=== PATIENT | male | born 1995 | race Caucasian/White ===

== ENCOUNTER 2016-07-09 10:47 | Emergency (ER) | payer OTHER ==
[2016-07-09] MEDS ORDERED: ONDANSETRON 4MG/2ML VIAL (J2405) As Ordered ONE (11:37)
[2016-07-09] MEDS ORDERED: PANTOPRAZOLE 40MG INJ (PROTONIX) (C9113) As Ordered ONE (11:37)
[2016-07-09 11:56] LABS: BASO % 0.5 % (0.0-1.0); EOS # 0.3 K/mm3 (0.0-0.50); EOS % 3.5 % (0.0-3.0); LARGE UNSTAINED CELL # 0.1 K/mm3 (0.0-0.4); LARGE UNSTAINED CELL % 1.3 % (0.0-4.0); LYMPH # 2.4 K/mm3 (1.5-6.5); LYMPH % 27.2 % (24.0-44.0); MEAN CORPUSCULAR HEMOGLOBIN 30.5 pg (27.0-33.0); MEAN CORPUSCULAR HGB CONC 33.1 g/dl (32.0-36.5); MEAN CORPUSCULAR VOLUME 92.3 fl (80.0-96.0); MONO # 0.4 K/mm3 (0.0-0.8); NEUTROPHILS # 5.2 K/mm3 (1.8-7.7); NEUTROPHILS % 62.5 % (36.0-66.0); PLATELET COUNT, AUTOMATED 275 k/mm3 (150-450); WHITE BLOOD COUNT 8.3 K/mm3 (4.0-10.0)
[2016-07-09] MEDS ORDERED: GI COCKTAIL 50ML BTL(HYOSCYAMINE/MAALOX/LIDOCAINE VISCOUS)(1:3:1) As Ordered ONE (12:19)
[2016-07-09 12:28] LABS: ALBUMIN 4.2 GM/DL (3.2-5.2); ALBUMIN/GLOBULIN RATIO 1.11 (1.00-1.93); ALKALINE PHOSPHATASE 57 U/L (45-117); ALT/SGPT 36 U/L (12-78); AMYLASE 74 U/L (25-115); ANION GAP 6 MEQ/L (8-16); AST/SGOT 22 U/L (15-37); BILIRUBIN,DIRECT < 0.1 MG/DL (0.0-0.2); BILIRUBIN,TOTAL 0.5 MG/DL (0.2-1.0); BLOOD UREA NITROGEN 11 MG/DL (7-18); CALCIUM LEVEL 9.2 MG/DL (8.5-10.1); CARBON DIOXIDE LEVEL 31 MEQ/L (21-32); CHLORIDE LEVEL 103 MEQ/L (98-107); CREATININE FOR GFR 0.95 MG/DL (0.70-1.30); GLOMERULAR FILTRATION RATE > 60.0 (>60); GLUCOSE, FASTING 83 MG/DL (70-105); POTASSIUM SERUM 3.9 MEQ/L (3.5-5.1); SODIUM LEVEL 140 MEQ/L (136-145)
--- NOTE | 2016-07-09 13:27 | EDDOCDS ---
Nurse's Notes [facility] Name: Edawrd Aldrich Age: 21 yrs Sex: Male : 1995 Arrival Date: 07/09/2016 Time: 10:47 Bed I5 / M5 Private MD: Alan Colón M Diagnosis: Gastritis, unspecified Presentation: 07/09 10:55 Presenting complaint: Patient states: upper abd pain and diarrhea since sun am. srm improves while eating or when takes tums but then returns. vomtited x2 on sun but none since. when he burps it tatses acidic. Risk factors: the patient reports not having a history of previous torsion. Adult Sepsis Screening: The patient does not have new or worsening altered mentation. Patient's respiratory rate is less than 22. Systolic blood pressure is greater than 100. Patient has a qSOFA score of 0- Negative Sepsis Screen. Suicide/Homicide risk assessment- the patient denies having any suicidal and/or homicidal ideations and does not present with any other emotional, behavioral or mental health complaints. 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 Transition of care: patient was not received from another setting of care. 10:55 Acuity: MIKAELA Level 3 srm 10:55 Method Of Arrival: Walkin/Carried/Asstd srm Triage Assessment: 10:57 General: Appears in no apparent distress, Behavior is appropriate for age, cooperative. srm Pain: Pain currently is 4 out of 10 on a pain scale. At worst was 10 out of 10 on a pain scale. HIV screening NA for this visit Offered previously. GI: Reports upper abd pain. Historical: - Allergies: no known allergies; - Home Meds: 1. none - PMHx: none; - PSHx: wisdom teeth; - Social history: Smoking status: Patient states was never smoker of tobacco. No barriers to communication noted, The patient speaks fluent Tajik, Speaks appropriately for age. - Family history: Not pertinent. - : The pt / caregiver states he / she is not on anticoagulants. Home medication list is obtained from the patient. - Exposure Risk Screening:: None identified. Screenin:43 Screening information is obtained from the patient. Fall risk: No risks identified. kp Assistance ADL's: requires no assistance with activities of daily living. Abuse/DV Screen: The patient / caregiver reports he/she is: not in a situation that causes fear, pain or injury. Nutritional screening: No deficits noted. Advance Directives: Currently, there is no health care proxy. There is no active DNR order. There is no living will. There is no Power of Drum Puller. Advance directive information has not previously been placed in an [facility] medical record. Further advance directive information is declined. home support is adequate. Assessment: 11:43 General: Appears in no apparent distress, well nourished, well groomed, Behavior is kpj appropriate for age, pleasant. Pain: Location: epigastric area Pain currently is 4 out of 10 on a pain scale. Neurological: Level of Consciousness is awake, alert, Oriented to person, place, time. Respiratory: Airway is patent Respiratory effort is even, unlabored, Respiratory pattern is regular, symmetrical, Breath sounds are clear bilaterally. GI: Abdomen is non- distended Bowel sounds present X 4 quads. Abd is soft X 4 quads Abd is tender to palpation in epigastric area Reports epigastric pain, nausea, Pain is 4 out of 10 on a pain scale. Derm: Skin is pink, warm & dry. 12:22 General: Appears in no apparent distress, Behavior is appropriate for age. Pain: kpj Location: epigastric area Pain currently is 7 out of 10 on a pain scale. Quality of pain is described as burning. Respiratory: Airway is patent Respiratory effort is even, unlabored. GI: Reports epigastric pain, Pain is 7 out of 10 on a pain scale. Derm: Skin is pink, warm & dry. 13:22 General: Appears in no apparent distress, comfortable, Behavior is appropriate for age, kpj pleasant. Pain: Denies pain. Neurological: Level of Consciousness is awake, alert, Oriented to person, place, time. Respiratory: Airway is patent Respiratory effort is even, unlabored. GI: Abdomen is non- distended Bowel sounds present X 4 quads. Abd is soft and non tender X 4 quads. Derm: Skin is pink, warm & dry. Vital Signs: 10:48 BP 158 / 59; Pulse 61; Resp 18; Temp 98.3(O); Pulse Ox 100% on R/A; Weight 84.82 kg ct3 (R); Height 5 ft. 7 in. (170.18 cm) (R); Pain 4/10; 12:18 BP 126 / 63; Pulse 55; Resp 20; Temp 97.2; Pulse Ox 98% ; Pain 7/10; jam1 13:14 BP 147 / 73; Pulse 65; Resp 18; Temp 96.6; Pulse Ox 97% ; Pain 2/10; jam1 10:48 Body Mass Index 29.29 (84.82 kg, 170.18 cm) ct3 Vitals: 10:48 Log In Time: July 09, 2016 at 10:46. ct3 ED Course: 10:48 Patient visited by Rosamaria Andrade PCA. ct3 10:48 Alan Colón is Private Physician. ct3 10:48 Patient moved to Waiting ct3 10:49 Patient moved to Pre RCE ct3 10:57 Triage Initiated srm 10:58 Patient moved to Triage 1 srm 11:18 Gagan Narvaez PA-C is PHCP. ar2 11:18 Kyrie Cisneros MD is Attending Physician. ar2 11:18 Patient visited by Gagan Narvaez PA-C. ar2 11:26 Patient moved to I5 / M5 [facility] 11:42 Amylase Sent. kpj 11:43 Resting quietly. kpj 11:43 The patient / caregiver is instructed regarding the plan of care and ED course. Patient taj has correct armband on for positive identification. Placed in gown. Placed in psych safe attire. Call light in reach. Diet: Patient is NPO. 11:43 Basic Metabolic Profile Sent. kpj 11:43 CBC with Diff Sent. kpj 11:43 Lipase Sent. kpj 11:43 Liver Profile Sent. kpj 11:43 Inserted saline lock: 20 gauge in left antecubital area and blood collected. [facility] patient tolerated the procedure well. 12:13 Patient visited by Natalya Garcai PCA. jam1 12:14 Pt greeted and oriented to ED. Patient advised of names of staff involved in care, jam1 location of call nagel, wait times and NPO status. Patient has correct armband on for positive identification. Placed in gown. Bed in low position. Call light in reach. Side rails up X 1. Door closed. 12:22 Resting quietly. using his cell phone, requesting to eat, advised NPO. kpj 12:22 IV is patent, is intact, is free of redness or swelling. kpj 12:53 Patient name changed from Edward\S\\S\Brown\S\ to Edward\S\Ray\S\Brown. EDMS 12:53 [facility] Payment Agreement was scanned into [employer] and attached to record. lg 13:10 Alan Colón is Referral Physician. ar2 13:22 Discontinued lock intact, bleeding controlled, pressure dressing applied, No kpj redness/swelling at site. No procedures done that require assistance. Administered Medications: 11:43 Drug: pantoprazole 40 mg [pantoprazole 40 mg intravenous solution] Route: IV; Rate: mcp bolus; Site: left antecubital; 12:15 Follow up: Response: Pain is decreased kpj 11:43 Drug: Ondansetron 4 mg [ondansetron HCl 2 mg/mL intravenous solution (2 mL)] Route: mcp IVP; Site: left antecubital; 12:15 Follow up: Response: Nausea is resolved kpj 12:21 Drug: GI Cocktail - (Alum-Mag Hydroxide-Simeth Suspension 225 mg-200 mg-25 mg/5 mL 30 kpj ml, Lidocaine Liquid 2 % 10 ml, Hyoscyamine Liquid 10 ml) Route: PO; Order Results: Lab Order: Amylase; SPEC'M 07/09/16 11:40 Test: AMYLASE; Value: 74; Range: 25-115; Units: U/L; Status: F Lab Order: Basic Metabolic Profile; SPEC'M 07/09/16 11:40 Test: GLUCOSE, FASTING; Value: 83; Range: 70-105; Units: MG/DL; Status: F Test: BLOOD UREA NITROGEN; Value: 11; Range: 7-18; Units: MG/DL; Status: F Test: CREATININE FOR GFR; Value: 0.95; Range: 0.70-1.30; Units: MG/DL; Status: F Test: GLOMERULAR FILTRATION RATE; Value: > 60.0; Range: >60; Status: F Test: SODIUM LEVEL; Value: 140; Range: 136-145; Units: MEQ/L; Status: F Test: POTASSIUM SERUM; Value: 3.9; Range: 3.5-5.1; Units: MEQ/L; Status: F Test: CHLORIDE LEVEL; Value: 103; Range: 98-107; Units: MEQ/L; Status: F Test: CARBON DIOXIDE LEVEL; Value: 31; Range: 21-32; Units: MEQ/L; Status: F Test: ANION GAP; Value: 6; Range: 8-16; Abnormal: Below low normal; Units: MEQ/L; Status: F Test: CALCIUM LEVEL; Value: 9.2; Range: 8.5-10.1; Units: MG/DL; Status: F Test Note: ; Units are mL/min/1.73 m2 Chronic Kidney Disease Staging per NKF: Stage I & II GFR >=60 Normal to Mildly Decreased Stage III GFR 30-59 Moderately Decreased Stage IV GFR 15-29 Severely Decreased Stage V GFR <15 Very Little GFR Left ESRD GFR <15 on MANUFACTURING ENGINEER PAINT Lab Order: CBC with Diff; SPEC'M 07/09/16 11:40 Test: WHITE BLOOD COUNT; Value: 8.3; Range: 4.0-10.0; Units: K/mm3; Status: F Test: RED BLOOD COUNT; Value: 5.53; Range: 4.30-6.10; Units: M/mm3; Status: F Test: HEMOGLOBIN; Value: 16.9; Range: 14.0-18.0; Units: g/dl; Status: F Test: HEMATOCRIT; Value: 51.0; Range: 42.0-52.0; Units: %; Status: F Test: MEAN CORPUSCULAR VOLUME; Value: 92.3; Range: 80.0-96.0; Units: fl; Status: F Test: MEAN CORPUSCULAR HEMOGLOBIN; Value: 30.5; Range: 27.0-33.0; Units: pg; Status: F Test: MEAN CORPUSCULAR HGB CONC; Value: 33.1; Range: 32.0-36.5; Units: g/dl; Status: F Test: RED CELL DISTRIBUTION WIDTH; Value: 12.0; Range: 11.5-14.5; Units: %; Status: F Test: PLATELET COUNT, AUTOMATED; Value: 275; Range: 150-450; Units: k/mm3; Status: F Test: NEUTROPHILS %; Value: 62.5; Range: 36.0-66.0; Units: %; Status: F Test: LYMPH %; Value: 27.2; Range: 24.0-44.0; Units: %; Status: F Test: MONO %; Value: 5.0; Range: 0.0-5.0; Units: %; Status: F Test: EOS %; Value: 3.5; Range: 0.0-3.0; Abnormal: Above high normal; Units: %; Status: F Test: BASO %; Value: 0.5; Range: 0.0-1.0; Units: %; Status: F Test: LARGE UNSTAINED CELL %; Value: 1.3; Range: 0.0-4.0; Units: %; Status: F Test: NEUTROPHILS #; Value: 5.2; Range: 1.8-7.7; Units: K/mm3; Status: F Test: LYMPH #; Value: 2.4; Range: 1.5-6.5; Units: K/mm3; Status: F Test: MONO #; Value: 0.4; Range: 0.0-0.8; Units: K/mm3; Status: F Test: EOS #; Value: 0.3; Range: 0.0-0.50; Units: K/mm3; Status: F Test: BASO #; Value: 0.0; Range: 0.0-0.2; Units: K/mm3; Status: F Test: LARGE UNSTAINED CELL #; Value: 0.1; Range: 0.0-0.4; Units: K/mm3; Status: F Lab Order: Lipase; [facility] 07/09/16 11:40 Test: LIPASE; Value: 116; Range: 73-393; Units: U/L; Status: F Lab Order: Liver Profile; [facility] 07/09/16 11:40 Test: AST/SGOT; Value: 22; Range: 15-37; Units: U/L; Status: F Test: ALT/SGPT; Value: 36; Range: 12-78; Units: U/L; Status: F Test: ALKALINE PHOSPHATASE; Value: 57; Range: 45-117; Units: U/L; Status: F Test: BILIRUBIN,TOTAL; Value: 0.5; Range: 0.2-1.0; Units: MG/DL; Status: F Test: BILIRUBIN,DIRECT; Value: < 0.1; Range: 0.0-0.2; Units: MG/DL; Status: F Test: TOTAL PROTEIN; Value: 8.0; Range: 6.4-8.2; Units: GM/DL; Status: F Test: ALBUMIN; Value: 4.2; Range: 3.2-5.2; Units: GM/DL; Status: F Test: ALBUMIN/GLOBULIN RATIO; Value: 1.11; Range: 1.00-1.93; Status: F Outcome: 13:11 Discharge ordered by Provider. ar 13:22 Discharge Assessment: Patient awake, alert and oriented x 3. No cognitive and/or kpj functional deficits noted. Patient verbalized understanding of disposition instructions. patient administered narcotics - no. The following High Risk Discharge criteria are identified: None. Discharged to home ambulatory. Condition: stable. Discharge instructions given to patient, Instructed on discharge instructions, follow up and referral plans. medication usage, diet, Demonstrated understanding of instructions, medications, Pt was receptive of discharge instructions/ teaching. Prescriptions given X 2. 13:25 No special radiology studies were completed. Property sent home with patient. [facility] 13:26 Patient left the ED. [facility] Signatures: Dispatcher [employer] EDRoxanna Macdonald RN RN Aniyah Gutiérrez, RN RN Ayaka Ward, RN Natalya Silva mcp, LINEN ROOM SUPERVISOR LINEN ROOM SUPERVISOR jam1 Niall Flores, Emile Reg Gagan Stanley PA-C PA-C ar2 Rosamaria Andrade, LINEN ROOM SUPERVISOR LINEN ROOM SUPERVISOR ct3 Natalya Knapp,RN RN [facility] MTDD
--- NOTE | 2016-07-09 13:27 | EDDOCDS ---
Physician Documentation [facility] Name: Edward Aldrich Age: 21 yrs Sex: Male : 1995 Arrival Date: 07/09/2016 Time: 10:47 Bed I5 / M5 Private MD: Alan Colón M Disposition: 07/09/16 13:11 Discharged to Home/Self Care. Impression: Gastritis, unspecified. - Condition is Stable. - Discharge Instructions: Gastritis, Adult, Peptic Ulcer Disease. - Prescriptions for Carafate 1 gram Oral Tablet - take 1 tablet by ORAL route 4 times per day take on an empty stomach, beginning on waking and last dose at bedtime; 20 tablet. Prilosec 20 mg Oral Capsule, Delayed Release(E.C.) - take 1 capsule by ORAL route once daily; 30 capsule. - Medication Reconciliation, Local Pharmacy Hours form. - Follow up: Alan Colón; When: 1 week; Reason: Recheck today's complaints. Follow up: Emergency Department; When: As needed; Reason: Fever > 102F, Worsening of conditions. - Problem is new. - Symptoms are resolved. Historical: - Allergies: no known allergies; - Home Meds: 1. none - PMHx: none; - PSHx: wisdom teeth; - Social history: Smoking status: Patient states was never smoker of tobacco. No barriers to communication noted, The patient speaks fluent Slovenian, Speaks appropriately for age. - Family history: Not pertinent. - : The pt / caregiver states he / she is not on anticoagulants. Home medication list is obtained from the patient. - Exposure Risk Screening:: None identified. Vital Signs: 07/09 10:48 BP 158 / 59; Pulse 61; Resp 18; Temp 98.3(O); Pulse Ox 100% on R/A; Weight 84.82 kg / ct3 187 lbs (R); Height 5 ft. 7 in. (170.18 cm) (R); Pain 4/10; 12:18 BP 126 / 63; Pulse 55; Resp 20; Temp 97.2; Pulse Ox 98% ; Pain 7/10; jam1 13:14 BP 147 / 73; Pulse 65; Resp 18; Temp 96.6; Pulse Ox 97% ; Pain 2/10; jam1 10:48 Body Mass Index 29.29 (84.82 kg, 170.18 cm) ct3 MDM: 11:27 IV Saline Lock ordered. ar2 11:27 Undress patient appropriately for examination ordered. ar2 11:27 pantoprazole 40 mg IV at bolus once ordered. ar2 11:27 Ondansetron 4 mg IVP once ordered. ar2 11:27 Misc. Nursing Order ordered. ar2 11:28 Amylase Ordered. EDMS 11:28 Basic Metabolic Profile Ordered. EDMS 11:28 CBC with Diff Ordered. EDMS 11:28 Lipase Ordered. EDMS 11:28 Liver Profile Ordered. EDMS 11:28 NOTHING BY MOUTH+DIET ordered. EDMS 11:50 Financial registration complete. lg 12:02 CBC with Diff Reviewed. ar2 12:09 GI Cocktail - (Alum-Mag Hydroxide-Simeth 30 ml, Lidocaine 10 ml, Hyoscyamine 10 ml) PO ar2 once; Pre-mixed 50mL unit dose ordered. 12:47 Basic Metabolic Profile Reviewed. ar2 12:47 Amylase Reviewed. ar2 12:47 Lipase Reviewed. ar2 12:47 Liver Profile Reviewed. ar2 12:53 [facility] Payment Agreement was scanned into [employer] and attached to record. lg Administered Medications: 11:43 Drug: pantoprazole 40 mg [pantoprazole 40 mg intravenous solution] Route: IV; Rate: mcp bolus; Site: left antecubital; 12:15 Follow up: Response: Pain is decreased kpj 11:43 Drug: Ondansetron 4 mg [ondansetron HCl 2 mg/mL intravenous solution (2 mL)] Route: mcp IVP; Site: left antecubital; 12:15 Follow up: Response: Nausea is resolved kpj 12:21 Drug: GI Cocktail - (Alum-Mag Hydroxide-Simeth Suspension 225 mg-200 mg-25 mg/5 mL 30 kpj ml, Lidocaine Liquid 2 % 10 ml, Hyoscyamine Liquid 10 ml) Route: PO; Signatures: Dispatcher [employer] Roxanna Ford RN RN kpj Michelson, Staci, RN RN srm Ganter, LoriLee, Emile Reg lg Gagan Narvaez PA-C PATone ar2 Ayaka Nance RN [facility] The chart was reviewed and I authenticate all verbal orders and agree with the evaluation and treatment provided.Attachments: 12:53 [facility] Payment Agreement lg MTDD
--- NOTE | 2016-07-11 14:26 | EDDOCDS ---
Physician Documentation [facility] Name: Edward Aldrich Age: 21 yrs Sex: Male : 1995 Arrival Date: 07/09/2016 Time: 10:47 Bed I5 / M5 Private MD: Alan Colón M Disposition: 07/09/16 13:11 Discharged to Home/Self Care. Impression: Gastritis, unspecified. - Condition is Stable. - Discharge Instructions: Gastritis, Adult, Peptic Ulcer Disease. - Prescriptions for Carafate 1 gram Oral Tablet - take 1 tablet by ORAL route 4 times per day take on an empty stomach, beginning on waking and last dose at bedtime; 20 tablet. Prilosec 20 mg Oral Capsule, Delayed Release(E.C.) - take 1 capsule by ORAL route once daily; 30 capsule. - Medication Reconciliation, Local Pharmacy Hours form. - Follow up: Alan Colón; When: 1 week; Reason: Recheck today's complaints. Follow up: Emergency Department; When: As needed; Reason: Fever > 102F, Worsening of conditions. - Problem is new. - Symptoms are resolved. Historical: - Allergies: no known allergies; - Home Meds: 1. none - PMHx: none; - PSHx: wisdom teeth; - Social history: Smoking status: Patient states was never smoker of tobacco. No barriers to communication noted, The patient speaks fluent Hungarian, Speaks appropriately for age. - Family history: Not pertinent. - : The pt / caregiver states he / she is not on anticoagulants. Home medication list is obtained from the patient. - Exposure Risk Screening:: None identified. Vital Signs: 07/09 10:48 BP 158 / 59; Pulse 61; Resp 18; Temp 98.3(O); Pulse Ox 100% on R/A; Weight 84.82 kg / ct3 187 lbs (R); Height 5 ft. 7 in. (170.18 cm) (R); Pain 4/10; 12:18 BP 126 / 63; Pulse 55; Resp 20; Temp 97.2; Pulse Ox 98% ; Pain 7/10; jam1 13:14 BP 147 / 73; Pulse 65; Resp 18; Temp 96.6; Pulse Ox 97% ; Pain 2/10; jam1 10:48 Body Mass Index 29.29 (84.82 kg, 170.18 cm) ct3 MDM: 11:27 IV Saline Lock ordered. ar2 11:27 Undress patient appropriately for examination ordered. ar2 11:27 pantoprazole 40 mg IV at bolus once ordered. ar2 11:27 Ondansetron 4 mg IVP once ordered. ar2 11:27 Misc. Nursing Order ordered. ar2 11:28 Amylase Ordered. EDMS 11:28 Basic Metabolic Profile Ordered. EDMS 11:28 CBC with Diff Ordered. EDMS 11:28 Lipase Ordered. EDMS 11:28 Liver Profile Ordered. EDMS 11:28 NOTHING BY MOUTH+DIET ordered. EDMS 11:50 Financial registration complete. lg 12:02 CBC with Diff Reviewed. ar2 12:09 GI Cocktail - (Alum-Mag Hydroxide-Simeth 30 ml, Lidocaine 10 ml, Hyoscyamine 10 ml) PO ar2 once; Pre-mixed 50mL unit dose ordered. 12:47 Basic Metabolic Profile Reviewed. ar2 12:47 Amylase Reviewed. ar2 12:47 Lipase Reviewed. ar2 12:47 Liver Profile Reviewed. ar2 12:53 [facility] Payment Agreement was scanned into [employer] and attached to record. lg 15:31 T-Sheet-- Draft Copy was scanned into [employer] and attached to record. gb Administered Medications: 11:43 Drug: pantoprazole 40 mg [pantoprazole 40 mg intravenous solution] Route: IV; Rate: mcp bolus; Site: left antecubital; 12:15 Follow up: Response: Pain is decreased kpj 11:43 Drug: Ondansetron 4 mg [ondansetron HCl 2 mg/mL intravenous solution (2 mL)] Route: mcp IVP; Site: left antecubital; 12:15 Follow up: Response: Nausea is resolved kpj 12:21 Drug: GI Cocktail - (Alum-Mag Hydroxide-Simeth Suspension 225 mg-200 mg-25 mg/5 mL 30 kpj ml, Lidocaine Liquid 2 % 10 ml, Hyoscyamine Liquid 10 ml) Route: PO; Signatures: Dispatcher [employer] EDMS Roxanna Colón RN RN kpj Michelson, Staci, RN RN [facility] Sydnee Eastman, Reg Reg gb Niall Flores, Reg Reg lg Gagan Narvaez PA-C PA-C ar2 Ayaka Nance RN [facility] The chart was reviewed and I authenticate all verbal orders and agree with the evaluation and treatment provided.Attachments: 12:53 [facility] Payment Agreement lg 15:31 T-Sheet-- Draft Copy gb Chart Complete MTDD
--- NOTE | 2016-07-11 14:26 | EDDOCDS ---
Physician Documentation [facility] Name: Edward Aldrich Age: 21 yrs Sex: Male : 1995 Arrival Date: 07/09/2016 Time: 10:47 Bed I5 / M5 Private MD: Alan Colón M Disposition: 07/09/16 13:11 Discharged to Home/Self Care. Impression: Gastritis, unspecified. - Condition is Stable. - Discharge Instructions: Gastritis, Adult, Peptic Ulcer Disease. - Prescriptions for Carafate 1 gram Oral Tablet - take 1 tablet by ORAL route 4 times per day take on an empty stomach, beginning on waking and last dose at bedtime; 20 tablet. Prilosec 20 mg Oral Capsule, Delayed Release(E.C.) - take 1 capsule by ORAL route once daily; 30 capsule. - Medication Reconciliation, Local Pharmacy Hours form. - Follow up: Alan Colón; When: 1 week; Reason: Recheck today's complaints. Follow up: Emergency Department; When: As needed; Reason: Fever > 102F, Worsening of conditions. - Problem is new. - Symptoms are resolved. Historical: - Allergies: no known allergies; - Home Meds: 1. none - PMHx: none; - PSHx: wisdom teeth; - Social history: Smoking status: Patient states was never smoker of tobacco. No barriers to communication noted, The patient speaks fluent Syriac, Speaks appropriately for age. - Family history: Not pertinent. - : The pt / caregiver states he / she is not on anticoagulants. Home medication list is obtained from the patient. - Exposure Risk Screening:: None identified. Vital Signs: 07/09 10:48 BP 158 / 59; Pulse 61; Resp 18; Temp 98.3(O); Pulse Ox 100% on R/A; Weight 84.82 kg / ct3 187 lbs (R); Height 5 ft. 7 in. (170.18 cm) (R); Pain 4/10; 12:18 BP 126 / 63; Pulse 55; Resp 20; Temp 97.2; Pulse Ox 98% ; Pain 7/10; jam1 13:14 BP 147 / 73; Pulse 65; Resp 18; Temp 96.6; Pulse Ox 97% ; Pain 2/10; jam1 10:48 Body Mass Index 29.29 (84.82 kg, 170.18 cm) ct3 MDM: 11:27 IV Saline Lock ordered. ar2 11:27 Undress patient appropriately for examination ordered. ar2 11:27 pantoprazole 40 mg IV at bolus once ordered. ar2 11:27 Ondansetron 4 mg IVP once ordered. ar2 11:27 Misc. Nursing Order ordered. ar2 11:28 Amylase Ordered. EDMS 11:28 Basic Metabolic Profile Ordered. EDMS 11:28 CBC with Diff Ordered. EDMS 11:28 Lipase Ordered. EDMS 11:28 Liver Profile Ordered. EDMS 11:28 NOTHING BY MOUTH+DIET ordered. EDMS 11:50 Financial registration complete. lg 12:02 CBC with Diff Reviewed. ar2 12:09 GI Cocktail - (Alum-Mag Hydroxide-Simeth 30 ml, Lidocaine 10 ml, Hyoscyamine 10 ml) PO ar2 once; Pre-mixed 50mL unit dose ordered. 12:47 Basic Metabolic Profile Reviewed. ar2 12:47 Amylase Reviewed. ar2 12:47 Lipase Reviewed. ar2 12:47 Liver Profile Reviewed. ar2 12:53 [facility] Payment Agreement was scanned into [employer] and attached to record. lg 15:31 T-Sheet-- Draft Copy was scanned into [employer] and attached to record. gb Administered Medications: 11:43 Drug: pantoprazole 40 mg [pantoprazole 40 mg intravenous solution] Route: IV; Rate: mcp bolus; Site: left antecubital; 12:15 Follow up: Response: Pain is decreased kpj 11:43 Drug: Ondansetron 4 mg [ondansetron HCl 2 mg/mL intravenous solution (2 mL)] Route: mcp IVP; Site: left antecubital; 12:15 Follow up: Response: Nausea is resolved kpj 12:21 Drug: GI Cocktail - (Alum-Mag Hydroxide-Simeth Suspension 225 mg-200 mg-25 mg/5 mL 30 kpj ml, Lidocaine Liquid 2 % 10 ml, Hyoscyamine Liquid 10 ml) Route: PO; Signatures: Dispatcher [employer] EDMS Roxanna Colón RN RN kpj Michelson, Staci, RN RN [facility] Sydnee Eastman, Reg Reg gb Niall Flores, Reg Reg lg Gagan Narvaez PA-C PA-C ar2 Ayaka Nance RN [facility] The chart was reviewed and I authenticate all verbal orders and agree with the evaluation and treatment provided.Attachments: 12:53 [facility] Payment Agreement lg 15:31 T-Sheet-- Draft Copy gb Chart Complete MTDD
--- NOTE | 2016-07-11 14:26 | EDDOCDS ---
Nurse's Notes [facility] Name: Edward Aldrich Age: 21 yrs Sex: Male : 1995 Arrival Date: 07/09/2016 Time: 10:47 Bed I5 / M5 Private MD: Alan Colón M Diagnosis: Gastritis, unspecified Presentation: 07/09 10:55 Presenting complaint: Patient states: upper abd pain and diarrhea since sun am. srm improves while eating or when takes tums but then returns. vomtited x2 on sun but none since. when he burps it tatses acidic. Risk factors: the patient reports not having a history of previous torsion. Adult Sepsis Screening: The patient does not have new or worsening altered mentation. Patient's respiratory rate is less than 22. Systolic blood pressure is greater than 100. Patient has a qSOFA score of 0- Negative Sepsis Screen. Suicide/Homicide risk assessment- the patient denies having any suicidal and/or homicidal ideations and does not present with any other emotional, behavioral or mental health complaints. 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 Transition of care: patient was not received from another setting of care. 10:55 Acuity: MIKAELA Level 3 srm 10:55 Method Of Arrival: Walkin/Carried/Asstd srm Triage Assessment: 10:57 General: Appears in no apparent distress, Behavior is appropriate for age, cooperative. srm Pain: Pain currently is 4 out of 10 on a pain scale. At worst was 10 out of 10 on a pain scale. HIV screening NA for this visit Offered previously. GI: Reports upper abd pain. Historical: - Allergies: no known allergies; - Home Meds: 1. none - PMHx: none; - PSHx: wisdom teeth; - Social history: Smoking status: Patient states was never smoker of tobacco. No barriers to communication noted, The patient speaks fluent Latvian, Speaks appropriately for age. - Family history: Not pertinent. - : The pt / caregiver states he / she is not on anticoagulants. Home medication list is obtained from the patient. - Exposure Risk Screening:: None identified. Screenin:43 Screening information is obtained from the patient. Fall risk: No risks identified. kp Assistance ADL's: requires no assistance with activities of daily living. Abuse/DV Screen: The patient / caregiver reports he/she is: not in a situation that causes fear, pain or injury. Nutritional screening: No deficits noted. Advance Directives: Currently, there is no health care proxy. There is no active DNR order. There is no living will. 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 Advance directive information has not previously been placed in an [facility] medical record. Further advance directive information is declined. home support is adequate. Assessment: 11:43 General: Appears in no apparent distress, well nourished, well groomed, Behavior is kpj appropriate for age, pleasant. Pain: Location: epigastric area Pain currently is 4 out of 10 on a pain scale. Neurological: Level of Consciousness is awake, alert, Oriented to person, place, time. Respiratory: Airway is patent Respiratory effort is even, unlabored, Respiratory pattern is regular, symmetrical, Breath sounds are clear bilaterally. GI: Abdomen is non- distended Bowel sounds present X 4 quads. Abd is soft X 4 quads Abd is tender to palpation in epigastric area Reports epigastric pain, nausea, Pain is 4 out of 10 on a pain scale. Derm: Skin is pink, warm & dry. 12:22 General: Appears in no apparent distress, Behavior is appropriate for age. Pain: kpj Location: epigastric area Pain currently is 7 out of 10 on a pain scale. Quality of pain is described as burning. Respiratory: Airway is patent Respiratory effort is even, unlabored. GI: Reports epigastric pain, Pain is 7 out of 10 on a pain scale. Derm: Skin is pink, warm & dry. 13:22 General: Appears in no apparent distress, comfortable, Behavior is appropriate for age, kpj pleasant. Pain: Denies pain. Neurological: Level of Consciousness is awake, alert, Oriented to person, place, time. Respiratory: Airway is patent Respiratory effort is even, unlabored. GI: Abdomen is non- distended Bowel sounds present X 4 quads. Abd is soft and non tender X 4 quads. Derm: Skin is pink, warm & dry. Vital Signs: 10:48 BP 158 / 59; Pulse 61; Resp 18; Temp 98.3(O); Pulse Ox 100% on R/A; Weight 84.82 kg ct3 (R); Height 5 ft. 7 in. (170.18 cm) (R); Pain 4/10; 12:18 BP 126 / 63; Pulse 55; Resp 20; Temp 97.2; Pulse Ox 98% ; Pain 7/10; jam1 13:14 BP 147 / 73; Pulse 65; Resp 18; Temp 96.6; Pulse Ox 97% ; Pain 2/10; jam1 10:48 Body Mass Index 29.29 (84.82 kg, 170.18 cm) ct3 Vitals: 10:48 Log In Time: July 09, 2016 at 10:46. ct3 ED Course: 10:48 Patient visited by Rosamaria Andrade PCA. ct3 10:48 Alan Colón is Private Physician. ct3 10:48 Patient moved to Waiting ct3 10:49 Patient moved to Pre RCE ct3 10:57 Triage Initiated srm 10:58 Patient moved to Triage 1 srm 11:18 Gagan Narvaez PA-C is PHCP. ar2 11:18 Kyrie Cisneros MD is Attending Physician. ar2 11:18 Patient visited by Gagan Narvaez PA-C. ar2 11:26 Patient moved to I5 / M5 [facility] 11:42 Amylase Sent. kpj 11:43 Resting quietly. kpj 11:43 The patient / caregiver is instructed regarding the plan of care and ED course. Patient taj has correct armband on for positive identification. Placed in gown. Placed in psych safe attire. Call light in reach. Diet: Patient is NPO. 11:43 Basic Metabolic Profile Sent. kpj 11:43 CBC with Diff Sent. kpj 11:43 Lipase Sent. kpj 11:43 Liver Profile Sent. kpj 11:43 Inserted saline lock: 20 gauge in left antecubital area and blood collected. [facility] patient tolerated the procedure well. 12:13 Patient visited by Natalya Garcia PCA. jam1 12:14 Pt greeted and oriented to ED. Patient advised of names of staff involved in care, jam1 location of call nagel, wait times and NPO status. Patient has correct armband on for positive identification. Placed in gown. Bed in low position. Call light in reach. Side rails up X 1. Door closed. 12:22 Resting quietly. using his cell phone, requesting to eat, advised NPO. kpj 12:22 IV is patent, is intact, is free of redness or swelling. kpj 12:53 Patient name changed from Edward\S\\S\Brown\S\ to Edward\S\Ray\S\Brown. EDMS 12:53 [facility] Payment Agreement was scanned into [employer] and attached to record. lg 13:10 Alan Colón is Referral Physician. ar2 13:22 Discontinued lock intact, bleeding controlled, pressure dressing applied, No kpj redness/swelling at site. No procedures done that require assistance. 15:31 T-Sheet-- Draft Copy was scanned into [employer] and attached to record. gb Administered Medications: 11:43 Drug: pantoprazole 40 mg [pantoprazole 40 mg intravenous solution] Route: IV; Rate: mcp bolus; Site: left antecubital; 12:15 Follow up: Response: Pain is decreased kpj 11:43 Drug: Ondansetron 4 mg [ondansetron HCl 2 mg/mL intravenous solution (2 mL)] Route: mcp IVP; Site: left antecubital; 12:15 Follow up: Response: Nausea is resolved kpj 12:21 Drug: GI Cocktail - (Alum-Mag Hydroxide-Simeth Suspension 225 mg-200 mg-25 mg/5 mL 30 kpj ml, Lidocaine Liquid 2 % 10 ml, Hyoscyamine Liquid 10 ml) Route: PO; Order Results: Lab Order: Amylase; SPEC'M 07/09/16 11:40 Test: AMYLASE; Value: 74; Range: 25-115; Units: U/L; Status: F Lab Order: Basic Metabolic Profile; SPEC'M 07/09/16 11:40 Test: GLUCOSE, FASTING; Value: 83; Range: 70-105; Units: MG/DL; Status: F Test: BLOOD UREA NITROGEN; Value: 11; Range: 7-18; Units: MG/DL; Status: F Test: CREATININE FOR GFR; Value: 0.95; Range: 0.70-1.30; Units: MG/DL; Status: F Test: GLOMERULAR FILTRATION RATE; Value: > 60.0; Range: >60; Status: F Test: SODIUM LEVEL; Value: 140; Range: 136-145; Units: MEQ/L; Status: F Test: POTASSIUM SERUM; Value: 3.9; Range: 3.5-5.1; Units: MEQ/L; Status: F Test: CHLORIDE LEVEL; Value: 103; Range: 98-107; Units: MEQ/L; Status: F Test: CARBON DIOXIDE LEVEL; Value: 31; Range: 21-32; Units: MEQ/L; Status: F Test: ANION GAP; Value: 6; Range: 8-16; Abnormal: Below low normal; Units: MEQ/L; Status: F Test: CALCIUM LEVEL; Value: 9.2; Range: 8.5-10.1; Units: MG/DL; Status: F Test Note: ; Units are mL/min/1.73 m2 Chronic Kidney Disease Staging per NKF: Stage I & II GFR >=60 Normal to Mildly Decreased Stage III GFR 30-59 Moderately Decreased Stage IV GFR 15-29 Severely Decreased Stage V GFR <15 Very Little GFR Left ESRD GFR <15 on SPOT CLEANER Lab Order: CBC with Diff; SPEC'M 07/09/16 11:40 Test: WHITE BLOOD COUNT; Value: 8.3; Range: 4.0-10.0; Units: K/mm3; Status: F Test: RED BLOOD COUNT; Value: 5.53; Range: 4.30-6.10; Units: M/mm3; Status: F Test: HEMOGLOBIN; Value: 16.9; Range: 14.0-18.0; Units: g/dl; Status: F Test: HEMATOCRIT; Value: 51.0; Range: 42.0-52.0; Units: %; Status: F Test: MEAN CORPUSCULAR VOLUME; Value: 92.3; Range: 80.0-96.0; Units: fl; Status: F Test: MEAN CORPUSCULAR HEMOGLOBIN; Value: 30.5; Range: 27.0-33.0; Units: pg; Status: F Test: MEAN CORPUSCULAR HGB CONC; Value: 33.1; Range: 32.0-36.5; Units: g/dl; Status: F Test: RED CELL DISTRIBUTION WIDTH; Value: 12.0; Range: 11.5-14.5; Units: %; Status: F Test: PLATELET COUNT, AUTOMATED; Value: 275; Range: 150-450; Units: k/mm3; Status: F Test: NEUTROPHILS %; Value: 62.5; Range: 36.0-66.0; Units: %; Status: F Test: LYMPH %; Value: 27.2; Range: 24.0-44.0; Units: %; Status: F Test: MONO %; Value: 5.0; Range: 0.0-5.0; Units: %; Status: F Test: EOS %; Value: 3.5; Range: 0.0-3.0; Abnormal: Above high normal; Units: %; Status: F Test: BASO %; Value: 0.5; Range: 0.0-1.0; Units: %; Status: F Test: LARGE UNSTAINED CELL %; Value: 1.3; Range: 0.0-4.0; Units: %; Status: F Test: NEUTROPHILS #; Value: 5.2; Range: 1.8-7.7; Units: K/mm3; Status: F Test: LYMPH #; Value: 2.4; Range: 1.5-6.5; Units: K/mm3; Status: F Test: MONO #; Value: 0.4; Range: 0.0-0.8; Units: K/mm3; Status: F Test: EOS #; Value: 0.3; Range: 0.0-0.50; Units: K/mm3; Status: F Test: BASO #; Value: 0.0; Range: 0.0-0.2; Units: K/mm3; Status: F Test: LARGE UNSTAINED CELL #; Value: 0.1; Range: 0.0-0.4; Units: K/mm3; Status: F Lab Order: Lipase; [facility]' 07/09/16 11:40 Test: LIPASE; Value: 116; Range: 73-393; Units: U/L; Status: F Lab Order: Liver Profile; [facility]' 07/09/16 11:40 Test: AST/SGOT; Value: 22; Range: 15-37; Units: U/L; Status: F Test: ALT/SGPT; Value: 36; Range: 12-78; Units: U/L; Status: F Test: ALKALINE PHOSPHATASE; Value: 57; Range: 45-117; Units: U/L; Status: F Test: BILIRUBIN,TOTAL; Value: 0.5; Range: 0.2-1.0; Units: MG/DL; Status: F Test: BILIRUBIN,DIRECT; Value: < 0.1; Range: 0.0-0.2; Units: MG/DL; Status: F Test: TOTAL PROTEIN; Value: 8.0; Range: 6.4-8.2; Units: GM/DL; Status: F Test: ALBUMIN; Value: 4.2; Range: 3.2-5.2; Units: GM/DL; Status: F Test: ALBUMIN/GLOBULIN RATIO; Value: 1.11; Range: 1.00-1.93; Status: F Outcome: 13:11 Discharge ordered by Provider. ar2 13:22 Discharge Assessment: Patient awake, alert and oriented x 3. No cognitive and/or j functional deficits noted. Patient verbalized understanding of disposition instructions. patient administered narcotics - no. The following High Risk Discharge criteria are identified: None. Discharged to home ambulatory. Condition: stable. Discharge instructions given to patient, Instructed on discharge instructions, follow up and referral plans. medication usage, diet, Demonstrated understanding of instructions, medications, Pt was receptive of discharge instructions/ teaching. Prescriptions given X 2. 13:25 No special radiology studies were completed. Property sent home with patient. [facility] 13:26 Patient left the ED. [facility] Signatures: Dispatcher [employer] EDMI Roxanna Colón RN RN [facility] Aniyah Arellano RN Ayaka Hernandez RN RN mcp Murphy, Jane, SOIL FIELD TECHNICIAN SOIL FIELD TECHNICIAN jam1 Sydnee Eastman, Reg Reg gb Niall Flores, Reg Reg lg Gagan Narvaez, PATone PATone ar2 Rosamaria Andrade, SOIL FIELD TECHNICIAN SOIL FIELD TECHNICIAN ct3 Natalya Knapp RN RN [facility] Chart Complete MTDD
== END 2016-07-09 13:26 | disposition home or self-care (01) ==
LOC: M ED 10:47
DX: K29.00 Acute gastritis without bleeding (principal)
CPT/HCPCS: 36415; 80048; 80076; 82150; 83690; 85025; 96374; 96375; 99284; C9113; J2405